=== PATIENT | female | born 1985 | race Two or more races ===

== ENCOUNTER 2023-03-22 11:11 | Outpatient (CLI) | payer OTHER | END 2023-03-22 16:21 | disposition home or self-care (01) | LOC: PRENATAL 11:11 | PROVIDERS: ATTEND Obstetrics & Gynecology Maternal & Fetal Medicine | DX: O36.80X0 Pregnancy with inconclusive fetal viability, not applicable or unspecified (principal); Z36.9 Encounter for antenatal screening, unspecified; O09.529 Supervision of elderly multigravida, unspecified trimester; O09.219 Supervision of pregnancy with history of pre-term labor, unspecified trimester; Z3A.12 12 weeks gestation of pregnancy ==

== ENCOUNTER → 2023-05-19 12:26 | Outpatient (CLI) | payer OTHER | END | disposition home or self-care (01) | LOC: PRENATAL 12:26 | PROVIDERS: ATTEND Obstetrics & Gynecology Maternal & Fetal Medicine | DX: O35.3XX0 Maternal care for (suspected) damage to fetus from viral disease in mother, not applicable or unspecified (principal); O44.00 Complete placenta previa NOS or without hemorrhage, unspecified trimester; O09.529 Supervision of elderly multigravida, unspecified trimester; O09.219 Supervision of pregnancy with history of pre-term labor, unspecified trimester; Z3A.20 20 weeks gestation of pregnancy ==

== ENCOUNTER 2023-08-11 09:22 | Outpatient (CLI) | payer OTHER | END 2023-08-11 09:23 | disposition home or self-care (01) | LOC: PRENATAL 09:22 | PROVIDERS: ATTEND Obstetrics & Gynecology Maternal & Fetal Medicine | DX: O26.849 Uterine size-date discrepancy, unspecified trimester (principal); O36.8199 Decreased fetal movements, unspecified trimester, other fetus; O09.529 Supervision of elderly multigravida, unspecified trimester; O09.219 Supervision of pregnancy with history of pre-term labor, unspecified trimester; Z3A.32 32 weeks gestation of pregnancy ==

== ENCOUNTER 2023-09-22 14:15 | Inpatient (IN) | payer OTHER ==
[~2023-09-22] VITALS: Ht 152.4 cm; Wt 67.6 kg
[2023-09-22 15:55] LABS: HEMATOCRIT 35.5 % (36.0-45.00); HEMOGLOBIN 11.9 g/dL (12.0-15.00); MEAN CORPUSCULAR HEMOGLOBIN 29.9 pg (27.00-32.0); MEAN CORPUSCULAR HGB CONC 33.7 g/dl (32.0-36.0); PLATELET COUNT 224 K/uL (150-450); RED BLOOD COUNT 3.98 M/uL (4.00-6.00); RED CELL DISTRIBUTION WIDTH 14.2 % (11.5-14.5)
[2023-09-22 15:57] LABS: PH,URINE 5.5 (5.0-8.0); URINE APPEARANCE Clear; URINE BILIRRUBIN Negative (NEGATIVE); URINE BLOOD Negative; URINE COLOR Yellow; URINE GLUCOSE Negative (NEGATIVE); URINE LEUKOCYTE Negative; URINE NITRATE Negative; URINE PROTEIN Negative (NEGATIVE); URINE UROBILINOGEN 0.2 E.U./dl
[2023-09-22 16:00] LABS: URINE BACTERIA 56.6 uL (0.0-1933); URINE WBC 4.9 uL (0.0-23.2)
[2023-09-22 16:06] LABS: URINE RBC 1.8 uL (0.0-20.8)
[2023-09-22 16:16] LABS: INR < 0.93; PARTIAL THROMBOPLASTIN TIME 29.3 SECONDS (22.0-34.0); PROTHROMBIN TIME 9.8 SECONDS (9.0-11.5)
[2023-09-22 16:31] LABS: ALBUMIN 2.4 gm/dL (3.4-5.0); BILIRUBIN TOTAL 0.23 mg/dL (0.3-1.2); CREATININE SERUM 0.61 mg/dL (0.55-1.02); GFR 110.98; GLOBULINA 3.6 G/DL (2.4-3.5); POTASSIUM 3.62 mEq/L (3.5-5.1)
[2023-09-28] MEDS ORDERED: PRENATAL TABLE1 EAC1 PO (07:21)
[2023-09-28] MEDS ORDERED: VITAL-D RX TAB1 EACH PO (07:22)
[2023-09-28] MEDS ORDERED: CHILDREN'S ASPI81 MG PO (07:22)
[2023-09-28] MEDS ORDERED: RINGERS SOLUTION,LACTATED 1,000 ML IV SCH (07:30)
[2023-09-28] MEDS ORDERED: ACETAMINOPHEN 500 MG GEL..CAP PO PRN (08:00)
[2023-09-28] MEDS ORDERED: OXYTOCIN 1,000 ML IV SCH (08:15)
[2023-09-28] MEDS ORDERED: ERYTHROMYCIN BASE 1 GM TUBE OP ONE (08:15)
[2023-09-28] MEDS ORDERED: LIDOCAINE HCL 100 MG/10ML VIAL PERCUT ONE (08:15)
[2023-09-28] MEDS ORDERED: CHLORHEXIDINE GLUCONATE 120 ML BOTTLE TOP ONE (08:15)
[2023-09-28] MEDS ORDERED: OXYTOCIN 10 UNITS/ML VIAL ONE (08:35)
[2023-09-28] MEDS ORDERED: PNV,CALCIUM 72/IRON/FOLIC ACID 1 TAB TABLET PO SCH (09:00)
[2023-09-28 13:28] LABS: HEMATOCRIT 36.2 % (36.0-45.00); HEMOGLOBIN 11.9 g/dL (12.0-15.00); MEAN CELL VOLUME 89.7 fL (80.00-100.00); MEAN CORPUSCULAR HEMOGLOBIN 29.5 pg (27.00-32.0); MEAN CORPUSCULAR HGB CONC 32.9 g/dl (32.0-36.0); PLATELET COUNT 200 K/uL (150-450); RED BLOOD COUNT 4.03 M/uL (4.00-6.00); RED CELL DISTRIBUTION WIDTH 14.2 % (11.5-14.5)
== END 2023-09-30 14:43 | disposition home or self-care (01) | DRG 807 ==
LOC: OB/GYN 09-28 06:59 → LDR 09-28 06:59 → OB/GYN 09-28 08:28 → SURH 10-04 14:15
PROVIDERS: Student in an Organized Health Care Education/Training Program; ADMIT Obstetrics & Gynecology; ATTEND Obstetrics & Gynecology
PROC: 10E0XZZ Delivery of Products of Conception, External Approach (ICD-10-PCS; principal; 2023-09-28)
PROC: 0HQ9XZZ Repair Perineum Skin, External Approach (ICD-10-PCS; 2023-09-28)
PROC: 4A1HXCZ Monitoring of Products of Conception, Cardiac Rate, External Approach (ICD-10-PCS; 2023-09-28)
DX: O70.0 First degree perineal laceration during delivery (principal); Z37.0 Single live birth; Z3A.39 39 weeks gestation of pregnancy; Z20.822 Contact with and (suspected) exposure to COVID-19

== ENCOUNTER 2024-04-19 10:25 | Outpatient (CLI) | payer OTHER ==
[~2024-04-19 10:25] MED LIST: CHILDREN'S ASPI81 MG PO; PRENATAL TABLE1 EAC1 PO; VITAL-D RX TAB1 EACH PO
== END 2024-04-19 10:38 | disposition home or self-care (01) ==
LOC: RAD 10:25
DX: M25.551 Pain in right hip (principal); M25.511 Pain in right shoulder; M79.651 Pain in right thigh; M99.01 Segmental and somatic dysfunction of cervical region; M99.02 Segmental and somatic dysfunction of thoracic region; M99.03 Segmental and somatic dysfunction of lumbar region; M99.04 Segmental and somatic dysfunction of sacral region; M99.05 Segmental and somatic dysfunction of pelvic region